=== PATIENT | female | born 1955 | race Caucasian/White ===

== ENCOUNTER 2016-10-25 09:45 | Inpatient (IN) | payer BC, OTHER ==
[~2016-10-25] VITALS: Ht 165.1 cm; Wt 104.3 kg
[2016-10-25] VITALS (8 sets, daily range): BP systolic 130–153; BP diastolic 65–90
--- NOTE | ~2016-10-25 | HC ---
[facility] [place] [address] CONSULTATION Name: CECILIA BLAKE Room #: 402-P [facility] IN M.R.#: [id number] Admission: 10/25/16 Attend Phys: Fabian De Discharge: 10/29/16 Date of : 51 Report #: [id number] THIS REPORT FOR: //name// CC: Fabian Keen ADDENDUM to dictation #[id number] The patient also has a history of significant lumbar spinal stenosis. She denies that she has had any surgery on her back, however. She does typically utilize the cane or the walker due to the fact that she has the lumbar spinal stenosis. <ELECTRONICALLY SIGNED> By: Javan Bowers MD 11/01/16 1157 [id number] Javan Bowers MD /nt
--- NOTE | ~2016-10-25 | S ---
[facility] [place] [address] SURGICAL PATH RPT PROCEDURE Name: CECILIA BLAKE A Room #: 402-P [facility] IN M.R.#: [id number] Admission: 10/25/16 Date of : 51 Discharge: Report #: [id number] Path Case #: [id number] PATHOLOGY REPORT COLLECTION DATE: 10/25/2016 RECEIVED DATE: 10/26/2016 SUBMITTING PHYS: Dr. Pro Travis OTHER PHYS: Dr. Almas Morrow SPECIMEN(S) RECEIVED: A.Gallbladder * * * * * * * * * * * * FINAL DIAGNOSIS: Gallbladder, cholecysectomy: - Marked acute and chronic hemorrhagic cholecystitis. - Cholelithiasis. (IUV:mgr; d/t: 10/28/16) PATHOLOGIST: Meagan Mckenzie M.D. REPORT ELECTRONICALLY SIGNED BY: Meagan Mckenzie M.D. DATE/TIME: 10/28/2016 16:33 * * * * * * * * * * * * GROSS PATHOLOGY: Received in formalin labeled "Cecilia Blake gallbladder," is a 8.4 x 4.4 x 3.1 cm, previously opened gallbladder with aiken-brown serosal surfaces displaying a moderate amount of adipose tissue. Opening the gallbladder reveals velvety and light brown mucosa with overlying brown patches and an average wall thickness of 0.1 cm. Multiple granular, dark brown calculi are present and no masses are noted grossly. Clay Carman sections from the body and fundus are submitted along with the proximal margin in cassette A1. (KAH; 10/27/2016) CLINICAL HISTORY: Acute cholelithiasis, acute cholecystitis INITIAL CPT CODE(S): A; 76059 Professional services performed by [facility] at [facility] [address] , [place] [address] [facility] [address] [place] [address] SURGICAL PATH RPT PROCEDURE Name: CECILIA BLAKE Room #: 402-P [facility] IN [facility]#: [id number] Admission: 10/25/16 Date of : 51 Discharge: Report #: [id number] Path Case #: [id number] Technical services performed by [facility] at [address] [place] [address], [facility] [address] [address]. [place] [address] PHONE: [phone] DIRECTOR: Gerardo Saucedo M.D. * * * END OF REPORT * * *
--- NOTE | ~2016-10-25 | HC ---
[facility] [place] [address] CONSULTATION Name: CECILIA BLAKE Room #: 402-P [facility] IN M.R.#: [id number] Admission: 10/25/16 Attend Phys: Fabian De Discharge: Date of : 51 Report #: [id number] THIS REPORT FOR: //name// CC: Fabian Keen INFECTIOUS DISEASE CONSULTATION HISTORY OF PRESENT ILLNESS: A 61-year-old white woman admitted with abdominal pain, diagnosed to have acute cholecystitis and underwent laparoscopic cholecystectomy and was treated with Zosyn and Flagyl. E. coli isolated. At present, the patient remains in pain and afraid to eat since eating triggered her problem. All in all, she appears to be making progress. PAST MEDICAL HISTORY: . Obesity. PENICILLIN allergy. Recent laparoscopic cholecystectomy. DRUG ALLERGIES: PENICILLIN and SULFA. MEDICATIONS: She is on treatment with hydromorphone 2 mg q.4h. p.r.n., metronidazole 500 mg IV daily, cyclobenzaprine 10 mg t.i.d., morphine sulfate 2 mg q.4h. p.r.n., hydrocodone one tablet q.4h. p.r.n., zolpidem tartrate 5 mg at bedtime p.r.n., nitroglycerin 0.4 mg p.r.n., acetaminophen 650 q.i.d. p.r.n., ondansetron 4 mg q.4h. IV p.r.n., Zosyn 3.375 grams IV every 6 hours and ketorolac tromethamine 15 mg IV every 8 hours if needed, this is discontinued. SOCIAL HISTORY: See H and P. FAMILY HISTORY: See H and P. REVIEW OF SYSTEMS: Abdominal pain and some nausea 5 days prior to admission. Currently, post-incisional pain and retrosternal chest pain worsened by deep breathing. PHYSICAL EXAMINATION: GENERAL: Obese woman, not toxic looking. VITAL SIGNS: Temperature of 101.3, October 25, 99.9 yesterday and 99.6 today. Pulse 79, respirations 18 and BP 91/55. HEENT: Head normocephalic, atraumatic. Pupils reactive. Mouth, no thrush. NECK: Supple. No thyromegaly. LUNGS: Clear. HEART: S1, S2. No gallop. ABDOMEN: Laparoscopic wounds SATYA draining serous-looking fluid, not sure of it. Abdomen tender as one might expect. Bowel sounds present. PELVIC AND RECTAL EXAMINATION: Deferred. EXTREMITIES: No clubbing, cyanosis. NEUROLOGIC: Grossly within normal limits. [address] [address] CONSULTATION Name: HAYDENCECILIA A Room #: 402-P [facility] IN M.R.#: [id number] Admission: 10/25/16 Attend Phys: Fabian De Discharge: Date of : 51 Report #: [id number] LABORATORY DATA: Sodium 139, potassium 3.8, BUN 10, creatinine 0.6 and glucose 137. Albumin on admission 3 g/dL, drops to 2.3 g/dL today: WBC 10,400 on admission, 9200 today; hemoglobin 10.9 g/dL and platelets 234,000. Urinalysis abnormal with increased specific gravity of 1.030, pH 6, 2+ protein, 1+ ketones, 2+ bilirubin, positive , positive blood, 2+ urobilinogen and trace leukocyte esterase. Microscopic exam revealed pyuria and bacteriuria as well as heavy mucus. MICROBIOLOGY DATA: The bile culture revealed growth of E. coli, sensitive to all tested antibiotics. The urine culture revealed a 10,000 colonies of normal genital and urethral mahad. RADIOLOGIC EVALUATION: Nuclear hepatobiliary scan - PIPIDA, no evidence of leak. ASSESSMENT: 1. Acute cholecystitis, status post laparoscopic cholecystectomy. 2. Abnormal urinalysis, secondary to acute cholecystitis, status post laparoscopic cholecystectomy. 3. Obesity. 4. Status post . 5. PENICILLIN and SULFA drug allergy, undetermined type. Tolerating Zosyn. SUGGESTIONS: Recommend, since the patient has tolerated Zosyn well, we will continue this medication, but recommend discontinuation of Flagyl. Dr. De, thank you for requesting my suggestions in the care of your patient. <ELECTRONICALLY SIGNED> By: Kwan Quezada MD 10/28/16 1309 [id number] [id number] Kwan Quezada MD /nt
--- NOTE | ~2016-10-25 | HC ---
[facility] [place] [address] CONSULTATION Name: CECILIA BLAKE Room #: 402-P [facility] IN M.R.#: [id number] Admission: 10/25/16 Attend Phys: Fabian De Discharge: 10/29/16 Date of : 51 Report #: [id number] THIS REPORT FOR: //name// CC: Fabian Keen HISTORY OF PRESENT ILLNESS: The patient is a 61-year-old white female originally admitted with right upper quadrant abdominal pain. She was diagnosed with acute cholecystitis. She underwent a laparoscopic cholecystectomy on 10/25/2016. Incentive spirometry has been encouraged. She is currently continuing on IV antibiotics per Infectious Disease with a plan to transition to oral. We are seeing her in rehabilitation medicine consultation. PAST MEDICAL HISTORY: Includes exogenous obesity, urinary tract infection. She has had prior right shoulder surgery in 2013 apparently for a rotator cuff tear. MEDICATIONS: Please see the full medication listing. SOCIAL HISTORY: She lives in a house with her , 7 steps in. There are steps inside as well. It is a split level house. She did not utilize gait aids except for a cane or a walker out in the community. Her works from home except when he needs to travel. ALLERGIES: PENICILLIN AND SULFA. REVIEW OF SYSTEMS: She notes that she has a bone spur involving the left shoulder and has had ongoing problems with that left shoulder as well as some increased pain while here in the hospital. Has some abdominal discomfort as expected, but appears to be improving. She notes frustration with her current condition. PHYSICAL EXAMINATION: GENERAL: A 61-year-old obese white female with some frustration with her condition, but otherwise has no obvious distress. VITAL SIGNS: Last recorded temperature 100, pulse 77, respirations 18, blood pressure 120/68. NEUROLOGIC: She is alert. She has functional range of motion of that right upper extremity without obvious focal weakness. She tends to favor moving that left upper extremity with the left shoulder problems and her prior history of bone spur involving that left shoulder. No obvious focal weakness was noted of the elbow, wrist, or hand. Lower extremities, no focal calf swelling, functional range of motion, tone appeared to be intact. She has been up doing some ambulation with a walker and the nursing staff utilizing a gait belt back and forth in the room. ASSESSMENT: A 61-year-old white female with the following problem list: 1. Acute cholecystitis, status post laparoscopic cholecystectomy 10/25/2016. 2. Low-grade fever, continuing on the IV antibiotics. [address] [address] CONSULTATION Name: CECILIA BLAKE [place] Room #: 402-P [facility] IN [facility].#: [id number] Admission: 10/25/16 Attend Phys: Fabian De Discharge: 10/29/16 Date of : 51 Report #: [id number] 3. Exogenous obesity. 4. Left shoulder bone spur, which she noted premorbidly. 5. Prior right shoulder surgery, apparently for rotator cuff tear repair. PLAN: Physical therapy and occupational therapy are to work with her on functional mobility and ADL issues. The patient is hoping to be able to return directly home as she further medically stabilizes. Her works in the home and should be able to be of some assistance as warranted. At this point, we will follow along with you, but again her hope would be to be able to return directly back to the home setting as she further medically stabilizes. Thank you for asking us to assist in this patient's care. <ELECTRONICALLY SIGNED> By: Javan Bowers MD 11/01/16 1157 [id number] [id number] Javan Bowers MD /nt
[2016-10-25] MEDS ORDERED: ZOFRAN ODT4 MG DISSOLVE (10:26)
[2016-10-25] MEDS ORDERED: MOBIC15 MG PO (10:26)
[2016-10-25] MEDS ORDERED: HYDROCODONE-AP1 EAC6 PO (10:27)
[2016-10-25] MEDS ORDERED: FLEXERIL PO (10:27)
[2016-10-25] MEDS ORDERED: TRAMADOL 50 MG50 MG PO (10:27)
[2016-10-25 10:36] LABS: HEMATOCRIT 39.6 % (37.0-47.0); HEMOGLOBIN 13.5 gm/dL (12.0-15.0); MCH 32.1 pg (26.0-34.0); MCHC 34.2 g/dL (28.0-37.0); MCV 93.7 fL (80.0-100.0); PLATELET COUNT 260 thou/uL (150-400); RBC 4.22 mil/uL (4.20-5.00); RDW 12.6 % (10.5-14.5); WBC 10.4 thou/uL (4.0-11.0)
[2016-10-25 10:36] LABS: URINE BILIRUBIN 2+ (Negative); URINE BLOOD 1+ (Negative); URINE COLOR YELLOW; URINE GLUCOSE-RANDOM* NEGATIVE (Negative); URINE KETONES 1+ (Negative); URINE LEUKOCYTES-REFLEX TRACE (Negative); URINE PROTEIN (DIPSTICK) 2+ (Negative); URINE SPECIFIC GRAVITY >= 1.030 (1.003-1.035)
[2016-10-25 10:39] LABS: MANUAL DIFF YES
[2016-10-25 10:41] LABS: CALCIUM 9.1 mg/dL (8.5-10.1); CREATININE 0.7 mg/dL (0.6-1.0); POTASSIUM 4.1 mmol/L (3.5-5.1)
[2016-10-25 10:45] LABS: TOTAL BILIRUBIN 0.6 mg/dL (<0.1-1.0); TOTAL PROTEIN 7.8 g/dL (6.4-8.2)
[2016-10-25 10:53] LABS: ICTOTEST (BILI CONFIRMATORY) Positive (Negative)
[2016-10-25 10:55] LABS: CASTS None Seen /LPF (None Seen); SQUAMOUS >10 Many /LPF (0-3)
[2016-10-25 10:56] LABS: URINE RBC 0-2 Rare /HPF (0-2); URINE WBC-REFLEX 6-15 Few /HPF (0-5)
[2016-10-25 10:57] LABS: CRYSTALS None Seen /LPF (None Seen)
[2016-10-25 12:35] LABS: ABSOLUTE NEUTROPHILS 6.7 thou/uL (1.4-8.2); ANISOCYTOSIS SLIGHT; METAMYELOCYTES 1 %; TOTAL CELL COUNT 100
[2016-10-25 19:06] LABS: CALCIUM 8.1 mg/dL (8.5-10.1); CREATININE 0.7 mg/dL (0.6-1.0); POTASSIUM 4.4 mmol/L (3.5-5.1)
[2016-10-25 19:11] LABS: ALBUMIN 2.9 g/dL (3.4-5.0); TOTAL BILIRUBIN 0.6 mg/dL (<0.1-1.0); TOTAL PROTEIN 6.5 g/dL (6.4-8.2)
[2016-10-26 04:33] VITALS: BP 124/70
[2016-10-26 08:00] VITALS: BP 111/52
[2016-10-26 20:00] VITALS: BP 102/67
[2016-10-27 00:02] VITALS: BP 111/69
[2016-10-27 04:00] VITALS: BP 91/55
[2016-10-27 04:30] LABS: MCH 32.4 pg (26.0-34.0); MCHC 34.2 g/dL (28.0-37.0); MCV 94.8 fL (80.0-100.0); RBC 3.37 mil/uL (4.20-5.00); RDW 12.8 % (10.5-14.5); WBC 9.2 thou/uL (4.0-11.0)
[2016-10-27 04:41] LABS: ALBUMIN 2.3 g/dL (3.4-5.0); CALCIUM 8.2 mg/dL (8.5-10.1); CREATININE 0.6 mg/dL (0.6-1.0); POTASSIUM 3.8 mmol/L (3.5-5.1); TOTAL BILIRUBIN 0.5 mg/dL (<0.1-1.0); TOTAL PROTEIN 6.2 g/dL (6.4-8.2)
[2016-10-27 04:55] LABS: HEMOGLOBIN 10.9 gm/dL (12.0-15.0)
[2016-10-27 10:43] VITALS: BP 120/68
[2016-10-27 17:44] VITALS: BP 138/84
[2016-10-27 20:00] VITALS: BP 113/66
[2016-10-28 04:00] VITALS: BP 126/69
[2016-10-28 04:35] LABS: HEMATOCRIT 31.8 % (37.0-47.0); HEMOGLOBIN 10.9 gm/dL (12.0-15.0); MCH 32.4 pg (26.0-34.0); MCHC 34.3 g/dL (28.0-37.0); MCV 94.6 fL (80.0-100.0); RBC 3.36 mil/uL (4.20-5.00); RDW 12.9 % (10.5-14.5); WBC 7.5 thou/uL (4.0-11.0)
[2016-10-28 04:46] LABS: ALBUMIN 2.2 g/dL (3.4-5.0); CALCIUM 7.9 mg/dL (8.5-10.1); CREATININE 0.7 mg/dL (0.6-1.0); POTASSIUM 3.8 mmol/L (3.5-5.1); TOTAL BILIRUBIN 0.4 mg/dL (<0.1-1.0)
[2016-10-28 08:46] VITALS: BP 124/66
[2016-10-28 16:28] VITALS: BP 130/74
[2016-10-28 20:10] VITALS: BP 131/72
[2016-10-28 20:17] VITALS: BP 127/71
[2016-10-29 02:47] VITALS: BP 123/70
[2016-10-29 04:46] LABS: HEMATOCRIT 33.5 % (37.0-47.0); HEMOGLOBIN 11.4 gm/dL (12.0-15.0); MCHC 34.1 g/dL (28.0-37.0); MCV 93.9 fL (80.0-100.0); RBC 3.57 mil/uL (4.20-5.00); WBC 6.9 thou/uL (4.0-11.0)
[2016-10-29 07:44] VITALS: BP 146/89
[2016-10-29 14:14] VITALS: BP 146/89
[2016-10-29 15:31] VITALS: BP 146/89
== END 2016-10-29 15:15 | disposition home or self-care (01) | DRG 418 ==
LOC: ER 09:45 → 4N 11:13 → EROBS 11:13 → ER 12:08 → 4N 12:12
PROVIDERS: Emergency Medicine; Hospitalist; Surgery
PROC: 0FT44ZZ Resection of Gallbladder, Percutaneous Endoscopic Approach (ICD-10-PCS; principal; 2016-10-25)
DX: K80.00 Calculus of gallbladder with acute cholecystitis without obstruction (principal); J98.11 Atelectasis; N39.0 Urinary tract infection, site not specified; M48.06 Spinal stenosis, lumbar region; E66.09 Other obesity due to excess calories; K21.9 Gastro-esophageal reflux disease without esophagitis; B96.20 Unspecified Escherichia coli [E. coli] as the cause of diseases classified elsewhere; M75.92 Shoulder lesion, unspecified, left shoulder; Z88.2 Allergy status to sulfonamides; Z88.0 Allergy status to penicillin; Z68.38 Body mass index [BMI] 38.0-38.9, adult; Z79.899 Other long term (current) drug therapy; Z87.440 Personal history of urinary (tract) infections; Z87.891 Personal history of nicotine dependence
CPT/HCPCS: 10091; 50010; 50101; 50249; 50411; 50555; 50900; 50962; 51297; 51489; 51578; 51975; 52265; 52287; 53307; 53314; 54022; 54118; 55245; 55317; 56462; 56525; 56526; 56970; 62110; 62900; 70005